=== PATIENT | male | born 1970 | race Caucasian/White ===

== ENCOUNTER 2016-11-06 22:31 | Emergency (ER) | payer SELFPAY ==
--- NOTE | 2016-11-06 23:25 | ED Physician Documentation ---
General Adult - HISTORIAN Historian: patient, friend - HPI Stated Complaint: High blood pressure Chief Complaint: General Adult Additional Information: BP AT HOME GREATER THAN 200/100. PT CONCERNED BUTHASK NOT BEEN TAKING HIS MEDS DIRECTED EG HE TOOKK NO MEDS TODAY UNTIL ABOUT 30 MINUSES BEFORE HE CAME TO THE ED. HE IS ON SEVERAL BP MEDS Onset: other (TODAY) Timing: better Severity: mild, moderate Further Comments: yes (PT ALSO IS QUITE OVERWT AND SMOKES CIGARETTES. HE WAS COUNSELLED RE BOTH PLUS MEDS COMPLIANCE) - ROS CONST: no problems EYES/ENT: none. denies: problems with vision CVS/RESP: other (has copt but ok now) MS/SKIN/LYMPH: none NEURO/PSYCH: denies: headache, dizziness - PAST HX Past History: COPD, CHF, hypertension, other (diabetes and diabetic neuropathy- uncertain of possible renal involvement) Surgeries/Procedures: other (cabg x 3 plus 1 stent) Allergies/Adverse Reactions: Allergies Allergy/AdvReac Type Severity Reaction Status Date / Time tetracycline Allergy Verified 11/06/16 22:53 Home Medications: Ambulatory Orders Medication Instructions Recorded Amitriptyline HCl 50 mg PO HS 11/06/16 Aspirin [Shivam] 325 mg PO DAILY 11/06/16 Atorvastatin Calcium [Lipitor] 80 mg PO HS 11/06/16 Budesonide/Formoterol Fumarate 1 puff IH BID 11/06/16 [Symbicort 160-4.5 Mcg Inhaler] Bupropion HCl [Bupropion Xl] 150 mg PO QDAY 11/06/16 Buspirone HCl [Buspar] 10 mg PO QDAY 11/06/16 Clonidine HCl [Catapres] 0.1 mg PO BID 11/06/16 Clopidogrel Bisulfate [Clopidogrel] 75 mg PO QDAY 11/06/16 Ergocalciferol (Vitamin D2) 50,000 unit PO WEEKLY AT 0600 11/06/16 [Drisdol] Furosemide [Lasix] 40 mg PO BID 11/06/16 Gabapentin [Neurontin] 800 mg PO TID 11/06/16 HYDROcodone /APAP 5/325 [[place] 1 each PO Q4 PRN 11/06/16 5/325] Hydrochlorothiazide [Hydrodiuril] 25 mg PO DAILY 11/06/16 Insulin Glargine,Hum.rec.anlog 10 units INJ DAILY 11/06/16 [Lantus Solostar] Insulin Glargine,Hum.rec.anlog 47 unit SQ HS 11/06/16 [Lantus Solostar] Levothyroxine Sodium [Synthroid] 50 mcg PO DAILY 11/06/16 Linagliptin [Tradjenta] 5 mg PO DAILY 11/06/16 Lisinopril [Zestril] 40 mg PO DAILY 11/06/16 Metformin HCl [Metformin HCl ER] 1,000 mg PO DAILY 11/06/16 Oxybutynin Chloride [Ditropan Xl] 10 mg PO DAILY 11/06/16 Sertraline HCl [Zoloft] 50 mg PO DAILY 11/06/16 amLODIPine BESYLATE [Norvasc] 10 mg PO 0911/06/16 - SOCIAL HX Smoking History: greater than 1 pack/day Alcohol Use: occasionally Drug Use: none (for several months) - FAMILY HX Family History: No - VITAL SIGNS Vital Signs: Vital Signs Temp Pulse Resp BP Pulse Ox 98.6 F 68 20 185/104 96 11/06/16 22:32 11/06/16 22:32 11/06/16 22:32 11/06/16 22:32 11/06/16 22:32 - REVIEWED ASSESSMENTS Nursing Assessment Reviewed: Yes Vitals Reviewed: Yes General Adult Physical Exam - PHYSICAL EXAM GENERAL APPEARANCE: mild distress (linda anxiety) NECK: normal inspection, thyroid normal, supple. No: lymphadenopathy, carotid bruit RESPIRATORY: no resp distress, chest non-tender, breath sounds normal CVS: reg rate & rhythm, heart sounds normal ABDOMEN: soft, non-tender SKIN: warm/dry, normal color. No: cyanosis, diaphoresis, jaundice, mottled EXTREMITIES: non-tender, normal range of motion, no edema NEURO: oriented X3, mood/affect nml (slight anxiety) Discharge Clincal Impression: uncontrolled htn, meds noncompliance-cigarettes Referrals: Primary Doctor,No [Primary Care Provider] - 2 Days Condition: Good Disposition: 01 HOME, SELF-CARE Decision to Admit: NO Decision Time: 23:31
[2016-11-06 23:26] VITALS: BP 170/84
== END 2016-11-06 23:15 | disposition home or self-care (01) ==
LOC: ED 22:31
DX: I10 Essential (primary) hypertension (principal); Z91.14 Patient's other noncompliance with medication regimen
CPT/HCPCS: 99283

== ENCOUNTER 2016-12-31 00:58 | Emergency (ER) | payer SELFPAY ==
[2016-12-31] MEDS: MORPHINE SULFATE 4 MG/ML PREFILLED SYR IVP ONE (01:19)
[2016-12-31 01:31] LABS: BASOPHILS % 1.1 (0.0-1.5); MEAN CORPUSCULAR HEMOGLOBIN 30.3 pg (28.0-34.0); MEAN CORPUSCULAR VOLUME 91.6 fl (80.0-100.0); MONOCYTES % 3.7 % (0.0-11.0); NEUTROPHILS # 11.8 # k/uL (1.4-7.7)
[2016-12-31] MEDS: ATROPINE SULFATE 0.1 MG/ML DISP.SYRIN IVP ONE (01:34)
[2016-12-31 01:52] LABS: eGFR (African) > 60; eGFR (Non-African) > 60
--- NOTE | 2016-12-31 01:55 | Diagnostic Imaging Report ---
HARRISON HATCH [facility] [address] [facility] [address] [place], [place]. [address] Report Submission Date: Dec 31, 2016 1:34:50 AM VICE PRESIDENT OF ENGINEERING Patient Study Name: NARINDER HURTADO Date: Dec 31, 2016 1:11:56 AM VICE PRESIDENT OF ENGINEERING Modality Type: CR Gender: M Description: CHEST : 68 Institution: [facility] Physician: HARRISON HATCH Portable chest History: Respiratory distress and intubation Findings: An endotracheal tube is poorly visualized but appears to be positioned above the glottis. Severe bilateral pulmonary infiltrates or edema, cardiomegaly, and sternotomy are observed. Exam is limited by obesity. Impression: 1. Endotracheal tube appears to be at or above the glottis. Called to the ED at 0134 VICE PRESIDENT OF ENGINEERING. 2. Severe bilateral panlobar infiltrates or edema. 3. Cardiomegaly and sternotomy. Electronically signed on Dec 31, 2016 1:34:50 AM VICE PRESIDENT OF ENGINEERING by: John VILA
--- NOTE | 2016-12-31 02:18 | ED Physician Documentation ---
General Adult - HISTORIAN Historian: patient - HPI Stated Complaint: resp distress Chief Complaint: CPR Additional Information: Pt was found by family to be short of breath and stopped breathing. Patient was with pulse although family did initiate full CPR when EMS arrived. He was brought to ER with assisted breathing and SR Timing: still present Last known Well Code/Unknown Code: Unknown - ROS CONST: other (No report of any recent illness ). denies: fever CVS/RESP: shortness of breath (prior to loss of resp ) NEURO/PSYCH: other (none given in report ) - PAST HX Past History: other (HTN, COPD, DM, Obesity, Depression, Hyperlipidemia, ) Immunizations: referred to PCP Allergies/Adverse Reactions: Allergies Allergy/AdvReac Type Severity Reaction Status Date / Time tetracycline Allergy Verified 12/31/16 03:02 Home Medications: Ambulatory Orders Medication Instructions Recorded Amitriptyline HCl 50 mg PO HS 11/06/16 Aspirin [Shivam] 325 mg PO DAILY 11/06/16 Atorvastatin Calcium [Lipitor] 40 mg PO HS 11/06/16 Budesonide/Formoterol Fumarate 1 puff IH BID 11/06/16 [Symbicort 160-4.5 Mcg Inhaler] Buspirone HCl [Buspar] 30 mg PO QDAY 11/06/16 Clonidine HCl [Catapres] 0.1 mg PO BID 11/06/16 Clopidogrel Bisulfate [Clopidogrel] 75 mg PO QDAY 11/06/16 Furosemide [Lasix] 40 mg PO DAILY 11/06/16 Gabapentin [Neurontin] 800 mg PO TID 11/06/16 Hydrochlorothiazide [Hydrodiuril] 25 mg PO DAILY 11/06/16 Insulin Glargine,Hum.rec.anlog 10 units INJ DAILY 11/06/16 [Lantus Solostar] Insulin Glargine,Hum.rec.anlog 47 unit SQ HS 11/06/16 [Lantus Solostar] Levothyroxine Sodium [Synthroid] 50 mcg PO DAILY 11/06/16 Linagliptin [Tradjenta] 5 mg PO DAILY 11/06/16 Metformin HCl [Metformin HCl ER] 1,000 mg PO DAILY 11/06/16 Oxybutynin Chloride [Ditropan Xl] 10 mg PO DAILY 11/06/16 Sertraline HCl [Zoloft] 100 mg PO DAILY 11/06/16 amLODIPine BESYLATE [Norvasc] 10 mg PO 0900 11/06/16 Albuterol Sulfate [Ventolin] 2.5 mg NEB Q4 PRN 12/31/16 Fluticasone Propionate 110 Mcg 1 puff IH DAILY 12/31/16 [Flovent Hfa] Gabapentin 1,200 mg PO TID 12/31/16 Metoprolol Succinate 200 mg PO BID 12/31/16 - SOCIAL HX Smoking History: other (unknown) Drug Use: none - FAMILY HX Family History: No - VITAL SIGNS Vital Signs: Vital Signs Temp Pulse Resp BP Pulse Ox 170/84 11/06/16 23:22 - REVIEWED ASSESSMENTS Nursing Assessment Reviewed: Yes Vitals Reviewed: Yes Progress - Progress Progress: pt did attempt to awaken and was not tolerating the advanced airway - Morphine 4 mg (0119) was given due to the uncomfortable nature the pt appeared to be in physically. Due to placement concerns and this symptom the tube was removed. He did at this time communicate with the staff he needed to sit up to breathe and he started to become combative. His pulse did start to decline as well as his oxygen sat - rebreather mask placed and Atropine 1 mg ( 0134) was given. he did start to to recover on his oxygen sat and pulse did stabilize [facility] did arrive and the team did take over pt efforts and report was called. report was called to [facility] Dr Toscano did accept pt - EKG/XRAY/CT EKG: NSR (tachycardia ) ED Results Lab/Radiology - Lab Results Lab Results: Lab Results 12/31/16 12/31/16 12/31/16 01:24 01:24 01:24 WBC 17.00 K/ul H K/ul (4.00-12.00) RBC 5.91 M/ul H M/ul (3.90-5.20) Hgb 17.9 g/dL g/dL (12.0-18.0) Hct 54.1 % H % (37.0-53.0) MCV 91.6 fl fl (80.0-100.0) MCH 30.3 pg pg (28.0-34.0) MCHC 33.0 g/dL g/dL (30.0-36.0) RDW 14.1 % % (11.3-14.3) Plt Count 253 K/mm3 K/mm3 (130-400) Neut % (Auto) 69.5 % % (39.0-79.0) Lymph % (Auto) 22.2 % % (16.0-50.0) [place] % (Auto) 3.7 % % (0.0-11.0) Eos % (Auto) 2.0 % % (0.0-6.8) Baso % (Auto) 1.1 (0.0-1.5) Neut # (Auto) 11.8 # k/uL H # k/uL (1.4-7.7) Lymph # (Auto) 3.8 # k/uL # k/uL (0.6-4.0) [place] # (Auto) 0.6 # k/uL # k/uL (0.0-0.9) Eos # (Auto) 0.3 # k/uL # k/uL (0.0-0.6) Baso # (Auto) 0.2 # k/uL # k/uL (0.0-0.5) Reactive Lymphs % 1.6 % % (0.0-5.0) Reactive Lymphs # 0.3 # k/uL # k/uL (0.0-0.8) PT 9.9 Seconds Seconds (9.4-11.6) INR 0.94 (0.9-1.2) Sodium Potassium Chloride Carbon Dioxide BUN Creatinine Est GFR ( Amer) Est GFR (Non-Af Amer) Glucose Calcium Total Bilirubin AST ALT Alkaline Phosphatase Troponin I < 0.03 ng/mL L ng/mL (0.03-0.06) Total Protein Albumin 12/31/16 01:24 WBC RBC Hgb Hct MCV MCH MCHC RDW Plt Count Neut % (Auto) Lymph % (Auto) [place] % (Auto) Eos % (Auto) Baso % (Auto) Neut # (Auto) Lymph # (Auto) [place] # (Auto) Eos # (Auto) Baso # (Auto) Reactive Lymphs % Reactive Lymphs # PT INR Sodium 136 mmol/L mmol/L (136-145) Potassium 4.9 mmol/L mmol/L (3.5-5.1) Chloride 98 mmol/L mmol/L (98-107) Carbon Dioxide 27 mmol/L mmol/L (22-30) BUN 20 mg/dL mg/dL (9-20) Creatinine 1.20 mg/dL mg/dL (0.66-1.25) Est GFR ( Amer) > 60 (60 - ) Est GFR (Non-Af Amer) > 60 (60 - ) Glucose 348 mg/dL H mg/dL (74-106) Calcium 8.0 mg/dL L mg/dL (8.4-10.2) Total Bilirubin 0.5 mg/dL mg/dL (0.2-1.3) AST 55 U/L H U/L (15-46) ALT 50 U/L U/L (13-69) Alkaline Phosphatase 114 U/L U/L (38-126) Troponin I Total Protein 7.1 g/dL g/dL (6.3-8.2) Albumin 3.8 g/dL g/dL (3.5-5.0) - Orders Orders: ED Orders Category Date Time Status CHEST 1 VIEW [RAD] Routine Exams 12/31/16 Completed CBC AUTO DIFF Routine Lab 12/31/16 01:24 Completed CMP Routine Lab 12/31/16 01:24 Completed PT-INR Routine Lab 12/31/16 01:24 Completed TROPONIN I (cTnI) Routine Lab 12/31/16 01:24 Completed Midazolam HCl/Pf [Versed] Med 12/31/16 01:33 Discontinued 5 mg IVP .STK-MED ONE Morphine Sulfate [DepoDUR] Med 12/31/16 01:19 Discontinued 4 mg .ROUTE .STK-MED ONE General Adult Physical Exam - PHYSICAL EXAM GENERAL APPEARANCE: severe distress EENT: eye inspection normal NECK: other (obese ) RESPIRATORY: other (diminished sounds ) CVS: reg rate & rhythm ABDOMEN: distended, other (no bowel sounds ) SKIN: cyanosis, diaphoresis, pallor EXTREMITIES: no edema NEURO: disoriented Discharge Clincal Impression: Respiratory failure Qualifiers: Chronicity: acute Respiratory failure complication: hypoxia Qualified Code(s): J96.01 - Acute respiratory failure with hypoxia Referrals: Primary Doctor,No [Primary Care Provider] - 2 Days Comments: helicopter for transport Condition: Serious Disposition: ADMITTED INPATIENT Decision to Admit: [id number] Date of Decison to Admit: 12/31/16 Decision Time: 01:50
[2016-12-31] MEDS: MORPHINE SULFATE 4 MG/ML PREFILLED SYR ONE (05:07)
[2016-12-31] MEDS: ATROPINE SULFATE 0.1 MG/ML DISP.SYRIN ONE (05:08)
[2016-12-31] MEDS: MIDAZOLAM HCL 5 MG/5 ML VIAL IVP ONE (05:08)
[2016-12-31 05:15] VITALS: BP 175/112
== END 2016-12-31 02:05 | disposition other institution (70) ==
LOC: ED 00:58
DX: J96.01 Acute respiratory failure with hypoxia (principal)
CPT/HCPCS: 71010; 80053; 84484; 85025; 85610; J0461; J2270; 96374; 96375; 99285; S1016

== ENCOUNTER 2017-03-31 17:07 | Emergency (ER) | payer OTHER ==
[2017-03-31 17:49] LABS: BASOPHILS % 0.4 (0.0-1.5); EOSINOPHILS % 2.4 % (0.0-6.8); MEAN CORPUSCULAR HEMOGLOBIN 31.7 pg (28.0-34.0); MEAN CORPUSCULAR VOLUME 91.5 fl (80.0-100.0); MONOCYTES % 4.8 % (0.0-11.0); NEUTROPHILS # 5.4 # k/uL (1.4-7.7)
[2017-03-31 18:03] LABS: eGFR (African) > 60; eGFR (Non-African) > 60
--- NOTE | 2017-03-31 18:34 | ED Physician Documentation ---
General Adult - HISTORIAN Historian: patient - HPI Stated Complaint: SOA, mild CP Chief Complaint: General Adult Further Comments: yes (46 year old male patient presents with complaint of arm pain. Patient states he was sleeping and was awoken by severe left arm pain, he then became SOB. Patient reports intubation in fall 2016 - states he gets very nervous when he is SOB. Patient states he saw his welder fitter helper recently at [facility], was started on isosorbide, had a positive stress test, is sceduled for a cath on 04/12/17. Patient denies any arm or CP at present, c/o mild dyspnea, Sat 97%, RR 18.) - ROS CONST: sweating. denies: fever, weakness, weight loss, chills EYES/ENT: none CVS/RESP: shortness of breath, cough. denies: chest pain GI/: none MS/SKIN/LYMPH: none NEURO/PSYCH: denies: headache, fainting, dizziness, tingling, numbness, difficulty walking, difficulty with speech, anxiety, depression, other - PAST HX Past History: AMI, COPD, other (morbid obesity, HTN, HLD) Other History: diabetes Type 2, other (depression) Surgeries/Procedures: cardiac bypass (x3, 2012) Allergies/Adverse Reactions: Allergies Allergy/AdvReac Type Severity Reaction Status Date / Time tetracycline Allergy Verified 03/31/17 17:53 Home Medications: Ambulatory Orders Medication Instructions Recorded Aspirin [Shivam] 325 mg PO DAILY 11/06/16 Atorvastatin Calcium [Lipitor] 40 mg PO HS 11/06/16 Clopidogrel Bisulfate [Clopidogrel] 75 mg PO QDAY 11/06/16 Gabapentin [Neurontin] 800 mg PO TID 11/06/16 Hydrochlorothiazide [Hydrodiuril] 25 mg PO DAILY 11/06/16 Sertraline HCl [Zoloft] 100 mg PO DAILY 11/06/16 Albuterol Sulfate [Ventolin] 2.5 mg NEB Q4 PRN 12/31/16 Metoprolol Succinate 200 mg PO BID 12/31/16 Buspirone HCl [Buspar] 10 mg PO BID 03/31/17 Isosorbide Mononitrate [Imdur] 30 mg PO D 03/31/17 Metformin HCl [Metformin HCl ER] 1,000 mg PO BID 03/31/17 Pregabalin [Lyrica] 75 mg PO TID 03/31/17 - SOCIAL HX Smoking History: cigarettes - FAMILY HX Family History: No - VITAL SIGNS Vital Signs: Vital Signs Temp Pulse Resp BP Pulse Ox 98.3 F 60 20 163/70 96 03/31/17 17:07 03/31/17 17:42 03/31/17 17:07 03/31/17 17:07 03/31/17 17:42 - REVIEWED ASSESSMENTS Nursing Assessment Reviewed: Yes Vitals Reviewed: Yes ED Results Lab/Radiology - Lab Results Lab Results: Lab Results 03/31/17 03/31/17 17:45 17:45 WBC 7.80 K/ul K/ul (4.00-12.00) RBC 4.90 M/ul M/ul (3.90-5.20) Hgb 15.5 g/dL g/dL (12.0-18.0) Hct 44.8 % % (37.0-53.0) MCV 91.5 fl fl (80.0-100.0) MCH 31.7 pg pg (28.0-34.0) MCHC 34.6 g/dL g/dL (30.0-36.0) RDW 15.0 % H % (11.3-14.3) Plt Count 186 K/mm3 K/mm3 (130-400) Neut % (Auto) 69.4 % % (39.0-79.0) Lymph % (Auto) 21.5 % % (16.0-50.0) [place] % (Auto) 4.8 % % (0.0-11.0) Eos % (Auto) 2.4 % % (0.0-6.8) Baso % (Auto) 0.4 (0.0-1.5) Neut # (Auto) 5.4 # k/uL # k/uL (1.4-7.7) Lymph # (Auto) 1.7 # k/uL # k/uL (0.6-4.0) [place] # (Auto) 0.4 # k/uL # k/uL (0.0-0.9) Eos # (Auto) 0.2 # k/uL # k/uL (0.0-0.6) Baso # (Auto) 0.0 # k/uL # k/uL (0.0-0.5) Reactive Lymphs % 1.5 % % (0.0-5.0) Reactive Lymphs # 0.1 # k/uL # k/uL (0.0-0.8) Sodium 141 mmol/L mmol/L (136-145) Potassium 3.6 mmol/L mmol/L (3.5-5.1) Chloride 100 mmol/L mmol/L (98-107) Carbon Dioxide 29 mmol/L mmol/L (22-30) BUN 19 mg/dL mg/dL (9-20) Creatinine 1.00 mg/dL mg/dL (0.66-1.25) Estimated Creat Clear 216 Est GFR ( Amer) > 60 (60 - ) Est GFR (Non-Af Amer) > 60 (60 - ) Glucose 148 mg/dL H mg/dL (74-106) Calcium 9.0 mg/dL mg/dL (8.4-10.2) Total Bilirubin 1.0 mg/dL mg/dL (0.2-1.3) AST 15 U/L U/L (15-46) ALT 20 U/L U/L (13-69) Alkaline Phosphatase 117 U/L U/L (38-126) Total Protein 6.6 g/dL g/dL (6.3-8.2) Albumin 3.8 g/dL g/dL (3.5-5.0) - Orders Orders: ED Orders Category Date Time Status Continuous EKG monitoring Q30M Care 03/31/17 17:42 Active Continuous Pulse Oximetry Q30M Care 03/31/17 17:[address] IV Lock 1T Care 03/31/17 17:42 Active CHEST 2VIEW [RAD] Stat Exams 03/31/17 17:42 Ordered CBC/PLATELET/DIFF Stat Lab 03/31/17 17:45 Completed CMP Stat Lab 03/31/17 17:45 Completed UA W/MICRO IF INDICATED Stat Lab 03/31/17 17:42 Ordered EKG WITH COMPARISON Stat Ther 03/31/17 17:42 Ordered General Adult Physical Exam - PHYSICAL EXAM GENERAL APPEARANCE: mild distress EENT: eye inspection normal, ENT inspection normal, pharynx normal, no signs of dehydration, FLASH, no nystagmus, TM's nml RESPIRATORY: no resp distress, chest non-tender, other (deminished in bases) CVS: reg rate & rhythm, heart sounds normal, equal pulses, no murmur, no gallop , PMI nml, no JVD, no friction rub, 24 ABDOMEN: soft, no organomegaly, normal bowel sounds, no abdominal bruit, no distension SKIN: normal color, warm/dry, NR, INT, PAL, DR EXTREMITIES: non-tender, normal range of motion, no evidence of injury, no edema , J, HEEL MOLDER NEURO: oriented X3, CN's nml as tested, motor nml, sensation nml, mood/affect nml Discharge Clincal Impression: Dyspnea on exertion CHF (congestive heart failure) Qualifiers: Congestive heart failure type: unspecified Congestive heart failure chronicity : acute Qualified Code(s): I50.9 - Heart failure, unspecified Referrals: Primary Doctor,No [Primary Care Provider] - 2 Days Condition: Stable Disposition: 01 HOME, SELF-CARE Decision to Admit: NO Decision Time: 22:54
--- NOTE | 2017-03-31 19:24 | Diagnostic Imaging Report ---
TYRONE HURST (SHIP SCALER) - ER [facility] [address] [address] Report Submission Date: Mar 31, 2017 6:49:32 PM SHANK BONER Patient Study Name: NARINDER HURTADO Date: Mar 31, 2017 6:13:50 PM SHANK BONER Modality Type: DX Gender: M Description: CHEST : 68 Institution: [facility] Physician: TYRONE HURST (SHIP SCALER) - ER Chest, PA and lateral HISTORY Cough, chest pain. FINDINGS Prior examinations are not available for comparison at the time of interpretation. Sternal wires indicate prior cardiac surgery. There is no large effusion or pneumothorax. There is flattening of the diaphragms, consistent with emphysema. The heart is enlarged. Pulmonary vascularity is normal. IMPRESSION Cardiomegaly. Emphysema. Electronically signed on Mar 31, 2017 6:49:32 PM SHANK BONER by: Conrado VILA
[2017-03-31] MEDS ORDERED: POTASSIUM CHLORIDE 20 MEQ TABLET.ER PO ONE (19:30)
[2017-03-31] MEDS ORDERED: FUROSEMIDE 20 MG/2 ML VIAL IVP ONE (19:30)
[2017-03-31 20:07] VITALS: BP 156/77
[2017-04-01 06:07] LABS: APPEARANCE,URINE CLEAR (CLEAR); COLOR,URINE YELLOW (YELLOW); OCCULT BLOOD,URINE 1+ (NEGATIVE); PH URINE 5.5 (5.0 - 8.0)
== END 2017-03-31 19:50 | disposition home or self-care (01) ==
LOC: ED 17:07
DX: I50.9 Heart failure, unspecified (principal); R06.02 Shortness of breath
CPT/HCPCS: 71046; 80053; 81002; 83880; 84484; 85025; 96374; 99283; S1016

== ENCOUNTER 2017-04-20 13:09 | Emergency (ER) | payer OTHER ==
[2017-04-20 13:28] VITALS: BP 191/85
--- NOTE | 2017-04-20 14:07 | ED Physician Documentation ---
General Adult - HPI Stated Complaint: Abcess to back of neck Chief Complaint: General Adult Additional Information: Patient has had recurrent abscess to the nape of his neck for some time. Patient does have several I&D. Patient states that over the last week is no some swelling to the neck. It has become more tender. Patient denies any drainage from the area that is aware. Patient believes that he may be developing another abscess would like to have it evaluated. Patient denies any fever or chills. Patient has had problems with abscess form in the groin and axilla area also in the past. Onset: days ago (7 days) Timing: still present Severity: mild Further Comments: no - ROS CONST: no problems. denies: fever, chills - PAST HX Past History: COPD, hypertension, other (sleep apnea, CHF) Other History: diabetes Type 2 Surgeries/Procedures: other (CABG 3 vessels) Immunizations: denies: influenza, pneumovax Allergies/Adverse Reactions: Allergies Allergy/AdvReac Type Severity Reaction Status Date / Time tetracycline Allergy Verified 04/20/17 13:28 Home Medications: Ambulatory Orders Medication Instructions Recorded Aspirin [Shivam] 325 mg PO DAILY 11/06/16 Atorvastatin Calcium [Lipitor] 40 mg PO HS 11/06/16 Clopidogrel Bisulfate [Clopidogrel] 75 mg PO QDAY 11/06/16 Gabapentin [Neurontin] 800 mg PO TID 11/06/16 Hydrochlorothiazide [Hydrodiuril] 25 mg PO DAILY 11/06/16 Sertraline HCl [Zoloft] 100 mg PO DAILY 11/06/16 Albuterol Sulfate [Ventolin] 2.5 mg NEB Q4 PRN 12/31/16 Metoprolol Succinate 200 mg PO BID 12/31/16 Buspirone HCl [Buspar] 10 mg PO BID 03/31/17 Isosorbide Mononitrate [Imdur] 30 mg PO D 03/31/17 Metformin HCl [Metformin HCl ER] 1,000 mg PO BID 03/31/17 Pregabalin [Lyrica] 75 mg PO TID 03/31/17 Cephalexin [Keflex] 500 mg PO TID #21 capsule 04/20/17 Nitroglycerin 0.4 mg SL PRN PRN 04/20/17 - SOCIAL HX Smoking History: greater than 1 pack/day (1 ppd) Alcohol Use: none Drug Use: none - FAMILY HX Family History: Yes (DM father and brother, Mother HTN) - VITAL SIGNS Vital Signs: Vital Signs Temp Pulse Resp BP Pulse Ox 97.7 F 57 L 20 191/85 98 04/20/17 13:10 04/20/17 13:10 04/20/17 13:10 04/20/17 13:10 04/20/17 13:10 - REVIEWED ASSESSMENTS Nursing Assessment Reviewed: Yes Vitals Reviewed: Yes Procedures Site: left posterior neck area Blade Size: 11 I & D Procedure: betadine prep, sterile drapes applied, sterile dressing applied , gauze wick placed General Adult Physical Exam - PHYSICAL EXAM GENERAL APPEARANCE: mild distress NECK: thyroid normal, supple, other (tenderness and flutuance area to the left nape of the neck. No drainage noted.) CVS: reg rate & rhythm, heart sounds normal, equal pulses BACK: normal inspection, no CVA tenderness SKIN: warm/dry, normal color, other (as above) NEURO: mood/affect nml, cognition normal Discharge Clincal Impression: Sebaceous cyst Prescriptions: Cephalexin [Keflex] 500 mg PO TID #21 capsule Referrals: Primary Doctor,No [Primary Care Provider] - 2 Days Additional Instructions: Try to keep packing in for 2 days then may remove. Warm compress to the area. Take some tramadol for pain today and tomorrow as needed. Thereafter take Advil or Aleve. Take cephalexin as directed for 7 days. If we need to change this once the culture is back someone will call you. If you have any further problems to followup with your primary care provider or return to the ED. Condition: Stable Decision to Admit: NO Date of Decison to Admit: 04/20/17 Decision Time: 15:03
[2017-04-20] MEDS ORDERED: Lidocaine 1% 5ml(IM or SUTURE)(PAIN CLINIC) IJ ONE (14:09)
== END 2017-04-20 15:30 | disposition home or self-care (01) ==
LOC: ED 13:09
DX: L02.11 Cutaneous abscess of neck (principal); E11.9 Type 2 diabetes mellitus without complications
CPT/HCPCS: 10060; 87070; 99282; 99283

== ENCOUNTER 2018-09-19 17:31 | Emergency (ER) | payer MEDICARE, OTHER ==
[2018-09-19] MEDS: KETOROLAC TROMETHAMINE 60 MG/2 ML VIAL IM ONE (17:56)
--- NOTE | 2018-09-19 18:47 | ED Physician Documentation ---
General Adult - HISTORIAN Historian: patient - HPI Stated Complaint: Low back pain Chief Complaint: General Adult Onset: hours Timing: still present Severity: moderate Further Comments: yes (Pt is a 48 yo obese male with pain in his lower back. Pain started spontaneously earlier today. Pt takes gabapentin and flexeril for neuropathy and muscle spasm. 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 Pain is on the right side into the buttock.) - ROS CONST: no problems EYES/ENT: none CVS/RESP: none GI/: none MS/SKIN/LYMPH: back pain - PAST HX Past History: other (AMI, COPD, HTN, HLD, obesity) Allergies/Adverse Reactions: Allergies Allergy/AdvReac Type Severity Reaction Status Date / Time tetracycline Allergy Verified 09/19/18 17:45 Home Medications: Ambulatory Orders Medication Instructions Recorded Aspirin [Shivam] 325 mg PO DAILY 11/06/16 Atorvastatin Calcium [Lipitor] 40 mg PO HS 11/06/16 Clopidogrel Bisulfate [Clopidogrel] 75 mg PO QDAY 11/06/16 Gabapentin [Neurontin] 800 mg PO TID 11/06/16 hydroCHLOROthiazide [Hydrodiuril] 25 mg PO DAILY 11/06/16 Albuterol Sulfate [Ventolin] 2.5 mg NEB Q4 PRN 12/31/16 Metoprolol Succinate 200 mg PO BID 12/31/16 Buspirone HCl [Buspar] 10 mg PO BID 03/31/17 Isosorbide Mononitrate [Imdur] 30 mg PO D 03/31/17 Metformin HCl [Metformin ER 1,000 mg PO BID 03/31/17 Osmotic] Nitroglycerin 0.4 mg SL PRN PRN 04/20/17 Tramadol HCl [Ultram] 50 mg PO Q6 PRN #10 tablet 04/20/17 Bupropion HCl [Wellbutrin Xl] 300 mg PO DAILY 09/19/18 - SOCIAL HX Smoking History: cigarettes - FAMILY HX Family History: No - VITAL SIGNS Vital Signs: Vital Signs Temp Pulse Resp BP Pulse Ox 98.4 F 58 L 22 127/68 96 09/19/18 17:46 09/19/18 17:46 09/19/18 17:46 09/19/18 17:46 09/19/18 17:46 - REVIEWED ASSESSMENTS Nursing Assessment Reviewed: Yes Vitals Reviewed: Yes Progress - Progress Progress: Toradol 60 mg IM Diazepam 10 mg IM improved ED Results Lab/Radiology - Orders Orders: ED Orders Category Date Time Status Ketorolac Tromethamine [Toradol] Med 09/19/18 17:48 Discontinued 60 mg IM NOW ONE diazePAM [Valium] Med 09/19/18 17:50 Discontinued 10 mg .ROUTE .STK-MED ONE diazePAM [Valium] Med 09/19/18 17:48 Discontinued 10 mg IM NOW ONE General Adult Physical Exam - PHYSICAL EXAM GENERAL APPEARANCE: obese NECK: normal inspection, supple RESPIRATORY: no resp distress, chest non-tender, breath sounds normal, other (distant breath sounds) CVS: reg rate & rhythm ABDOMEN: soft, no organomegaly, normal bowel sounds BACK: normal inspection, other (tender/spasm R buttock; no pain over spine) SKIN: warm/dry, normal color EXTREMITIES: normal range of motion NEURO: oriented X3, motor nml Discharge Clincal Impression: back pain/spasm Referrals: Primary Doctor,No [Primary Care Provider] - Condition: Stable Disposition: 01 HOME, SELF-CARE Decision to Admit: NO Decision Time: 19:10
[2018-09-19 19:28] VITALS: BP 118/62
[2018-09-20 06:48] LABS: APPEARANCE,URINE CLEAR (CLEAR); COLOR,URINE YELLOW (YELLOW); OCCULT BLOOD,URINE NEGATIVE (NEGATIVE); UROBILINOGEN URINE 0.2 Eu (0.2-1.0)
== END 2018-09-19 19:24 | disposition home or self-care (01) ==
LOC: ED 17:31
DX: M54.5 Low back pain (principal)
CPT/HCPCS: 81002; 96372; 99282; 99283; J1885